=== PATIENT | female | born 1995 | race Caucasian/White ===

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

== ENCOUNTER 2017-01-28 07:05 | Emergency (ER) | payer BC ==
[2017-01-28] MEDS ORDERED: NS 1,000 ML IV ONE ×2 (07:07→08:28)
--- NOTE | 2017-01-28 07:27 | EDPHY ---
HPI/HX/ROS/PE/MDM Narrative: CHIEF COMPLAINT: Syncope at work HPI: This patient is a 21 year old female arriving via EMS following a syncopal episode this morning at work shortly prior to arrival. She works as a front desk representative at a hotel, and while standing at the computer she began to feel dizzy. She sat down, and subsequently passed out. She woke on the floor. A wind site manager present told her she had a brief episode of shaking. She denies ever having any syncopal episodes before. She states she got very little sleep last night, about four hours due to her work schedule at her second job. She denies recent illness or any fever, headache, nausea, or other associated symptoms. REVIEW OF SYSTEMS: Aside from elements discussed in the HPI, a comprehensive 10-point review of systems was reviewed and is negative. PMH: Denies. 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 Lives in [place]. PHYSICAL EXAM: General:Patient is alert, in no acute distress. ENT: Left front incisor chipped. Swelling and tenderness to left eyebrow. Eyes are normal to inspection. ENT inspection otherwise normal. Neck: Normal inspection. Full range of motion. Respiratory:No respiratory distress. Breath sounds normal bilaterally. Cardiovascular: Regular rate and rhythm. Strong peripheral pulses. Normal cap refill. Abdomen:The abdomen is nontender to palpation. There are no peritoneal signs. There are normal bowel sounds. Back: Normal to inspection. No tenderness to palpation. Skin: 1cm laceration underneath chin. Normal color. No rash. Warm and dry. Extremities: Normal appearance. Full range of motion. Neuro: Oriented x3. Normal motor function. Normal sensory function. ED Course: 21 year old female presents following a syncopal episode at work shortly prior to arrival. Physical exam reveals a 2cm linear laceration underneath her chin, chipped front tooth, and swelling and tenderness to her left eyebrow. Plan for EKG, lab work including CBC, BMP, and BHCG. Plan to repair laceration with Dermabond. The 12 lead EKG was interpreted by myself. See hard copy and/or "tracemaster" electronic copy for interpretation. Sinus rhythm, rate 69. Procedure: Laceration repair. Verbal consent was obtained from the patient. The linear 2cm laceration on the underside of the chin was cleaned with standard ED protocol. There were no deep structures involved. The wound was repaired in single layer technique with Dermabond. The wound repair was simple. The procedure was performed by myself, Dr. Berman. Laboratory results within normal limits. EKG shows sinus rhythm. Administered 2L IV NS. The patient is feeling better, and her laceration has been repaired. Plan to discharge home in good condition. Followup and return precautions discussed. The patient is comfortable with this plan. MDM: This is a healthy young female who presents with syncope, likely secondary to prolonged standing after getting very little sleep. There is no evidence of or ectopic. ECG is normal and there are no signs of conduction abnormality. No clinical evidence for PE. I think she is safe for discharge home. - Data Points Laboratory Results: Laboratory Results 01/28/17 07:25 01/28/17 07:25 01/28/17 01/28/17 01/28/17 07:25 07:25 07:25 WBC 8.08 10^3/uL 10^3/uL (3.80-9.50) RBC 4.43 10^6/uL 10^6/uL (4.18-5.33) Hgb 13.8 g/dL g/dL (12.6-16.3) Hct 40.2 % % (38.0-47.0) MCV 90.7 fL fL (81.5-99.8) MCH 31.2 pg pg (27.9-34.1) MCHC 34.3 g/dL g/dL (32.4-36.7) RDW 11.9 % % (11.5-15.2) Plt Count 192 10^3/uL 10^3/uL (150-400) MPV 9.5 fL fL (8.7-11.7) Neut % (Auto) 59.3 % % (39.3-74.2) Lymph % (Auto) 33.7 % % (15.0-45.0) [place] % (Auto) 5.9 % % (4.5-13.0) Eos % (Auto) 0.5 % L % (0.6-7.6) Baso % (Auto) 0.4 % % (0.3-1.7) Nucleat RBC Rel Count 0.0 % % (0.0-0.2) Absolute Neuts (auto) 4.79 10^3/uL 10^3/uL (1.70-6.50) Absolute Lymphs (auto) 2.72 10^3/uL 10^3/uL (1.00-3.00) Absolute Monos (auto) 0.48 10^3/uL 10^3/uL (0.30-0.80) Absolute Eos (auto) 0.04 10^3/uL 10^3/uL (0.03-0.40) Absolute Basos (auto) 0.03 10^3/uL 10^3/uL (0.02-0.10) Absolute Nucleated RBC 0.00 10^3/uL 10^3/uL (0-0.01) Immature Gran % 0.2 % % (0.0-1.1) Immature Gran # 0.02 10^3/uL 10^3/uL (0.00-0.10) Sodium 139 mEq/L mEq/L (134-144) Potassium 3.7 mEq/L mEq/L (3.5-5.2) Chloride 106 mEq/L mEq/L (97-110) Carbon Dioxide 20 mEq/l L mEq/l (22-31) Anion Gap 13 mEq/L mEq/L (8-16) BUN 21 mg/dL mg/dL (7-23) Creatinine 0.8 mg/dL mg/dL (0.6-1.0) Estimated GFR > 60 Glucose 85 mg/dL mg/dL (70-100) Calcium 9.9 mg/dL mg/dL (8.5-10.4) Beta HCG, Qual NEGATIVE Medications Given: Discontinued Medications Sodium Chloride (Ns) 1,000 mls @ 0 mls/hr IV EDNOW ONE; Wide Open PRN Reason: Protocol Stop: 01/28/17 07:08 Last Admin: 01/28/17 07:31 Dose: 1,000 mls Sodium Chloride (Ns) 1,000 mls @ 0 mls/hr IV EDNOW ONE; Wide Open PRN Reason: Protocol Stop: 01/28/17 08:29 Last Admin: 01/28/17 08:29 Dose: 1,000 mls General Time Seen by Provider: 01/28/17 07:07 Initial Vital Signs: Initial Vital Signs Temperature (C) 36.7 C 01/28/17 07:10 Heart Rate 69 01/28/17 07:10 Respiratory Rate 18 01/28/17 07:10 Blood Pressure 106/74 01/28/17 07:10 O2 Sat (%) 92 01/28/17 07:10 O2 Delivery Mode Room Air Allergies/Adverse Reactions: Penicillins Allergy (Verified 11/25/16 20:50) unknown anxiety med Allergy (Uncoded 01/28/17 07:10) Home Medications: Medication Instructions Recorded buPROPion XL [Wellbutrin 150mg XL] 150 mg PO DAILY #30 tab 11/27/16 Departure - Departure Disposition: Home, Routine, Self-Care Clinical Impression: Syncope, Facial laceration Condition: Good Instructions: Syncope (ED), Facial Laceration (ED) Additional Instructions: Follow up with your primary care provider this week. Stay well hydrated and eat well. We have referred you to our primary care physician amortization schedule clerk, but you may follow up with your regular provider. Return to the Emergency Department for repeat episodes of fainting, severe headache, numbness or weakness, or if you develop fever, redness, discharge from wound, increasing pain or other worsening of condition. Referrals: Jillian Anguiano MD [Medical Doctor] - As per Instructions Report Scribed for: Franklyn Berman Report Scribed by: Tere Chamberlain Date of Report: 01/28/17 Time of Report: 07:27 Physician Review and Approval Statement: Portions of this note were transcribed by an ED scribe. I personally performed the history, physical exam, and medical decision making; and confirm the accuracy of the information in the transcribed note.
[2017-01-28 07:32] LABS: % IMMATURE GRANULYOCYTES 0.2 % (0.0-1.1); ABSOLUTE IMMATURE GRANULOCYTES 0.02 10^3/uL (0.00-0.10); ADD DIFF? NO; ADD MORPH? NO; ADD SCAN? NO; ATYPICAL LYMPHOCYTE FLAG 0 (0-99); FRAGMENT RBC FLAG 0 (0-99); HEMATOCRIT 40.2 % (38.0-47.0); HEMOGLOBIN 13.8 g/dL (12.6-16.3); LEFT SHIFT FLG 0 (0-99); LIPEMIA HEMOLYSIS FLAG 90 (0-99); MEAN CELL HEMOGLOBIN 31.2 pg (27.9-34.1); MEAN CELL HEMOGLOBIN CONCENTR. 34.3 g/dL (32.4-36.7); MEAN CELL VOLUME 90.7 fL (81.5-99.8); MEAN PLATELET VOLUME 9.5 fL (8.7-11.7); PLATELET CLUMPS FLAG 0 (0-99); PLATELET COUNT 192 10^3/uL (150-400); RED BLOOD CELL COUNT 4.43 10^6/uL (4.18-5.33); RED CELL DISTRIBUTION WIDTH 11.9 % (11.5-15.2)
--- NOTE | 2017-01-28 07:33 | CPEKG ---
Heart Rate: 69 RR Interval: 870 P-R Interval: 172 QRSD Interval: 74 QT Interval: 400 QTC Interval: 429 P [facility]: 76 QRS [facility]: 54 T Wave [facility]: 44 EKG Severity - NORMAL ECG - EKG Impression: SINUS RHYTHM Electronically Signed By: Wayne Brody 29-Jan-2017 12:20:21
[2017-01-28 07:49] LABS: ANION GAP 13 mEq/L (8-16); CALCIUM 9.9 mg/dL (8.5-10.4); CARBON DIOXIDE 20 mEq/l (22-31); CHLORIDE 106 mEq/L (97-110); CREATININE 0.8 mg/dL (0.6-1.0); GLOMERULAR FILTRATION RATE > 60; GLUCOSE 85 mg/dL (70-100); POTASSIUM 3.7 mEq/L (3.5-5.2); SODIUM 139 mEq/L (134-144)
[2017-01-28 08:09] VITALS: O2SAT 100
[2017-01-28] MEDS ORDERED: SKIN ADHESIVE (DERMABOND) 1 EACH TP ONE (08:13)
[2017-01-28 08:42] VITALS: BP 99/65; PULSE 83; RESP 20
[2017-01-28 08:46] VITALS: TEMP 97.3
== END 2017-01-28 08:46 | disposition home or self-care (01) ==
LOC: EDUNIT# → EDBD
PROC: 0HQ1XZZ Repair Face Skin, External Approach (ICD-10-PCS; principal; 2017-01-28)
DX: S01.81XA Laceration without foreign body of other part of head, initial encounter (principal); W18.39XA Other fall on same level, initial encounter; Y92.59 Other trade areas as the place of occurrence of the external cause; Y99.0 Civilian activity done for income or pay; Y93.89 Activity, other specified; R55 Syncope and collapse; E86.9 Volume depletion, unspecified